=== PATIENT | female | born 1995 | race American Indian/Alaskan Native ===

== ENCOUNTER 2016-12-01 19:30 | Emergency (ER) | payer SELFPAY ==
[2016-12-01 20:08] VITALS: BP 121/70
[2016-12-01] MEDS ORDERED: FUL-GLO OP ONE (23:09)
--- NOTE | 2016-12-01 23:13 | Emergency Department Report ---
Eye Injury/Foreign Body - HPI Duration: 2 Days Eye Location: Left Severity: Mild Tetanus Status: Up to Date Eye Symptoms: Eye Pain: No, Blurred Vision: Yes, Eye Redness: No, Grinding/ Hammering Metal: No, Used Eye Protection: No, Contact Lens Use: No, Recalls Injury: No, Photophobia: No Other History: 21-year-old female past medical history none since with complaint of 2 days of left eyelid pain and swelling. Patient states that she spontaneously woke up with a slightly uncomfortable left upper eyelid. Patient states that she also noticed some yellow crusting eyelid edge. Patient states she has increased lacrimation from left eye. Slightly blurry vision. Denies any direct trauma toeye, denies any particles or chemical splashing on eye. Patient works as a hairdresser. Has not used any [id number] medicines, did use warm compresses throughout the course of today. ED Review of Systems ROS: Stated complaint: L EYE PAIN/SWELLING/ITCHING Other details as noted in HPI Constitutional: denies: chills, fever Eyes: eye discharge, vision change (slightly blurry vision left eye). denies: eye pain ENT: denies: ear pain, throat pain Respiratory: denies: cough, shortness of breath, wheezing Cardiovascular: denies: chest pain, palpitations Endocrine: no symptoms reported Gastrointestinal: denies: abdominal pain, nausea, diarrhea Genitourinary: denies: urgency, dysuria, discharge Musculoskeletal: denies: back pain, joint swelling, arthralgia Skin: denies: rash, lesions Neurological: denies: headache, weakness, paresthesias Psychiatric: denies: anxiety, depression Hematological/Lymphatic: denies: easy bleeding, easy bruising ED Past Medical Hx - Past Medical History Previous Medical History?: No Additional medical history: Vaginal delivery x 1, last month - Social History Smoking Status: Unknown if ever smoked - Medications Home Medications: Home Medications Medication Instructions Recorded Confirmed Last Taken Type Fluconazole [Diflucan TAB] 150 mg PO ONCE #2 tablet 01/03/16 Unknown Rx Acyclovir [Zovirax Tab] 800 mg PO Q12H #20 tab 02/12/16 Unknown Rx metroNIDAZOLE [Flagyl] 500 mg PO Q12HR #14 tab 02/12/16 Unknown Rx Erythromycin [Erythromycin Ophth 10 applic OP BID #1 tube 12/01/16 Unknown Rx Oint] Ibuprofen [Motrin] 600 mg PO Q8H PRN #30 tablet 12/01/16 Unknown Rx Naphazoline HCl/Pheniramine 1 drop OS Q4H PRN #1 bottle 12/01/16 Unknown Rx [Naphcon-A Eye Drops] Polyvinyl Alcohol/Povidone 1 - 2 drop OP PRN PRN #1 bottle 12/01/16 Unknown Rx [Artificial Tears Drops 0.5/0.6 %] Eye Injury Exam - Exam General: Vital signs noted. No distress. Alert and acting appropriately. - Visual Acuity Bilateral Vision Acuity Degree: 20/30 Eye Exam: Both EOMI ED Course Vital Signs 12/01/16 20:04 Temperature 98.0 F Pulse Rate 86 Respiratory 16 Rate Blood Pressure 121/70 O2 Sat by Pulse 100 Oximetry ED Medical Decision Making - Medical Decision Making A/P: Left upper eyelid blepharitis 1-. Unremarkable floor seems stain exam, no corneal abrasion. No foreign body seen surface of left eye. Erythromycin ointment left eye, warm compresses periodically, Motrin 600 when necessary, artificial tears, Naphcon a for itching sensation when necessary, 2-patient's extraocular movements are intact, no clinical signs of orbital cellulitis 3-provided patient with ophthalmology referral. I advised patient to follow up as soon as possible overall vision 20/30, 20/50 left eye, right eye 20/30 Critical care attestation.: If time is entered above; I have spent that time in minutes in the direct care of this critically ill patient, excluding procedure time. ED Disposition Clinical Impression: Blepharitis of eyelid of left eye Qualifiers: Blepharitis type: unspecified type Eyelid: upper Qualified Code(s): H01.004 - Unspecified blepharitis left upper eyelid Disposition: DC-01 TO HOME OR SELFCARE Is pt being admited?: No Does the pt Need Aspirin: No Condition: Stable Instructions: Blepharitis (ED) Prescriptions: Erythromycin [Erythromycin Ophth Oint] 10 applic OP BID #1 tube Ibuprofen [Motrin] 600 mg PO Q8H PRN #30 tablet PRN Reason: Pain Naphazoline HCl/Pheniramine [Naphcon-A Eye Drops] 1 drop OS Q4H PRN #1 bottle PRN Reason: Itching Polyvinyl Alcohol/Povidone [Artificial Tears Drops 0.5/0.6 %] 1 - 2 drop OP PRN PRN #1 bottle PRN Reason: Itching Referrals: OSEAS LEMA MD [Staff Physician] - 3-5 Days MARLYN CHAIDEZ MD [Staff Physician] - 3-5 Days Forms: Work/School Release Form(ED) Time of Disposition: 23:16
== END 2016-12-01 23:29 | disposition home or self-care (01) ==
LOC: ED 19:30
DX: H01.004 Unspecified blepharitis left upper eyelid (principal)
CPT/HCPCS: 99283

== ENCOUNTER 2022-02-06 11:06 | Emergency (ER) | payer OTHER ==
[2022-02-06] MEDS ORDERED: KETOROLAC 30 MG/1 ML INJ IM ONE (12:54)
[2022-02-06] MEDS ORDERED: guaiFENesin/CODEINE 100-10MG ORAL LIQD 5 ML PO ONE (12:54)
[2022-02-06] MEDS ORDERED: dexAMETHasone 20 MG/5 ML VIAL IM ONE (12:54)
--- NOTE | 2022-02-06 12:59 | Emergency Department Report ---
Minor Respiratory - HPI Chief Complaint: Upper Respiratory Infection Stated Complaint: COVID/FLU SYMPTONS Time Seen by Provider: 02/06/22 11:40 Duration: 4 Days Pain Location: Throat, Chest Severity: moderate Minor Respiratory: Yes Rhinorrhea, Yes Sore Throat, Yes Able to Tolerate Fluids, Yes Cough, Yes Sick Contacts, No Ear Pain, No Hemoptysis, No Chest Pain, No Shortness of Breath, No Fever Other History: 26-year-old female presenting with flulike symptoms. Patient describes cough sore throat which all started on Thursday. Patient describes the symptoms as progressively worsening with associated body aches, difficulty swallowing, nausea. She reports sick contact does not have family member also has similar symptoms. She denies headache dizziness or vision changes, no hemoptysis, no vomiting, no abdominal pain, no chest pain, no wheezing, no shortness of breath, no visual changes. Times are worsened by swallowing and improves with nothing, ED Review of Systems ROS: Stated complaint: COVID/FLU SYMPTONS Other details as noted in HPI Constitutional: chills, weakness Eyes: denies: vision change ENT: throat pain Respiratory: cough. denies: shortness of breath, wheezing Cardiovascular: denies: chest pain Endocrine: denies: intolerance to cold, intolerance to heat Gastrointestinal: denies: abdominal pain, vomiting, diarrhea Genitourinary: denies: urgency Musculoskeletal: myalgia Skin: denies: rash Neurological: weakness. denies: headache ED Past Medical Hx - Past Medical History Additional medical history: Vaginal delivery x 1, last month - Social History Smoking Status: Unknown if ever smoked - Medications Home Medications: Home Medications Medication Instructions Recorded Confirmed Last Taken Type Fluconazole (Nf) [Diflucan TAB] 150 mg PO ONCE #2 tablet 01/03/16 Unknown Rx Acyclovir [Zovirax Tab] 800 mg PO Q12H #20 tab 02/12/16 Unknown Rx metroNIDAZOLE [Flagyl] 500 mg PO Q12HR #14 tab 02/12/16 Unknown Rx Erythromycin [Erythromycin Ophth 10 applic OP BID #1 tube 12/01/16 Unknown Rx Oint] Naphazoline HCl/Pheniramine 1 drop OS Q4H PRN #1 bottle 12/01/16 Unknown Rx [Naphcon-A Eye Drops] Polyvinyl Alcohol/Povidone 1 - 2 drop OP PRN PRN #1 bottle 12/01/16 Unknown Rx [Artificial Tears Drops 0.5/0.6 %] Azithromycin 250 mg PO DAILY #6 02/06/22 Unknown Rx Codeine Phosphate/Guaifenesin 10 ml PO QID PRN #100 02/06/22 Unknown Rx [Guaifen-Codeine 200-20 mg/10Ml] Ibuprofen [Motrin] 600 mg PO Q8H PRN #30 tablet 02/06/22 Unknown Rx Phenol 1.4% [Chloraseptic] 1 spray MM PRN PRN #1 bottle 02/06/22 Unknown Rx Minor Respiratory Exam - Exam General: Vital signs noted. No distress. Alert and acting appropriately. Uncomfortable appearing, hoarse voice, no drooling, no trismus, HEENT: Yes Pharyngeal Erythema, Yes Rhinorrhea, No Pharyngeal Exudates, No Moist Mucous Membranes, No Conjuctival Injection, No Frontal Tenderness, No Maxillary Tenderness Ear: Neither TM Bulge, Neither TM Erythema Neck: Yes Adenopathy, Yes Supple Lungs: Yes Good Air Exchange, Yes Cough, No Wheezes, No Ronchi, No Stridor, No Labored Respirations, No Retractions, No Use of Accessory Muscles, No Other Abnormal Lung Sounds Heart: Yes Regular Abdomen: No Tenderness, No Peritoneal Signs, No Normal Bowel Sounds Skin: No Rash Neurologic: Alert and oriented, no deficits. Musculoskeletal: Unremarkable. ED Course Vital Signs 02/06/22 11:10 Temperature 97.5 F L Pulse Rate 90 Respiratory 18 Rate Blood Pressure 125/77 [Right] O2 Sat by Pulse 99 Oximetry ED Medical Decision Making - Medical Decision Making 26-year-old presenting with flulike symptoms URI hoarseness of her voice positiv e sick contacts, otherwise vital signs stable, Upon reevaluation she reports marked improvement of her symptoms, she is tolerating oral intake without vomiting, ambulating steady and has sats has been above 95% on room air. Discharge home with supportive therapy including Z-[place], antitussive combo. Patient remained stable nontoxic-appearing, afebrile, ambulating steadily without assistance. Gone over ED findings with patient as well as plan for follow-up. Also discussed return precautions with patient, all questions and concerns addressed. Patient is stable to be discharged follow-up outpatient. Audio voice dictation device used, hence the chart might contain some dictation errors, mispronunciations, wrong spelling and wrong verbiage. Critical care attestation.: If time is entered above; I have spent that time in minutes in the direct care of this critically ill patient, excluding procedure time. ED Disposition Clinical Impression: Pharyngitis, URI (upper respiratory infection) Disposition: 01 HOME / SELF CARE / HOMELESS Is pt being admited?: No Does the pt Need Aspirin: No Condition: Stable Instructions: Pharyngitis, [id number] Prescriptions: Azithromycin 250 mg PO DAILY #6 Phenol 1.4% [Chloraseptic] 1 spray MM PRN PRN #1 bottle PRN Reason: Sore Throat Codeine Phosphate/Guaifenesin [Guaifen-Codeine 200-20 mg/10Ml] 10 ml PO QID PRN #100 PRN Reason: Cough Ibuprofen [Motrin] 600 mg PO Q8H PRN #30 tablet PRN Reason: Pain Referrals: PRIMARY CAREMD [Primary Care Provider] - 3-5 Days NEGIN LIM MD [Staff Physician] - 3-5 Days Forms: Work/School Release Form(ED)
[2022-02-06 18:15] VITALS: BP 132/78
== END 2022-02-06 18:14 | disposition home or self-care (01) ==
LOC: ED 11:06
DX: J02.9 Acute pharyngitis, unspecified (principal); J06.9 Acute upper respiratory infection, unspecified
CPT/HCPCS: 87116; 87430; 96372; 99283; J1100; J1885